=== PATIENT | female | born 1945 | race Two or more races ===

== ENCOUNTER 2016-09-23 14:12 | Inpatient (IN) | payer MEDICAID, OTHER ==
[~2016-09-23] VITALS: Ht 162.6 cm; Wt 74.6 kg
[2016-09-23 15:04] LABS: Basophils # (auto) 0 uL; Basophils % (auto) 0.4 % (0.0-2.0); Eosinophils # (auto) 0.1 uL; Eosinophils % (auto) 1.5 % (0.0-7.0); Hematocrit 43.4 % (36.0-46.0); Hemoglobin 14.4 g/dL (12.2-16.2); Lymphocytes # (auto) 2.7 uL; Lymphocytes % (auto) 38.4 % (10.0-50.0); Mean Corpuscular Hemoglobin 27.5 pg (28.0-32.0); Mean Corpuscular Hgb Conc. 33.3 g/dL (32.0-36.0); Mean Corpuscular Volume 82.6 fL (80.0-100.0); Mean Platelet Volume 9.7 fL (7.4-10.4); Monocytes # (auto) 0.7 uL; Monocytes % (auto) 10.1 % (0.0-12.0); Neutrophils # (auto) 3.5 uL; Neutrophils % (auto) 49.6 % (37.0-80.0); Platelet Count (auto) 385 10^3/uL (140-450); Red Cell Distribution Width 15.4 % (11.6-16.0)
[2016-09-23 15:19] LABS: BUN/Creatinine Ratio 24.1; Bilirubin, Total 0.4 mg/dL (0.2-1.0); Calcium 9.3 mg/dL (8.5-10.1); Potassium 4.3 mmol/L (3.5-5.1); Total Protein 7.2 g/dL (6.4-8.2)
[2016-09-23] MEDS ORDERED: SODIUM CHLORIDE 0.9% 1,000 ML IV ONE (16:45)
[2016-09-23 17:19] LABS: INR 1.09 (0.9-1.15); Partial Thromboplastin Time 24.5 sec (22.64-33.71); Prothrombin Time 11.2 sec (9.37-12.3)
[2016-09-23] MEDS ORDERED: IOHEXOL 300 MG/ML 100ML BOTTLE IJ ONE (17:43)
[2016-09-23] MEDS ORDERED: ONDANSETRON HCL 4 MG/2 ML VIAL IV PRN (18:45)
[2016-09-23] MEDS ORDERED: ACETAMINOPHEN 325 MG TAB PO PRN (18:45)
[2016-09-23] MEDS ORDERED: HYDROcodone-ACET 5/325MG TAB PO PRN (18:45)
[2016-09-23] MEDS ORDERED: TEMAZEPAM 15 MG CAP PO PRN (18:45)
[2016-09-23] MEDS ORDERED: MORPHINE SULF INJ 2 MG/ML SYRINGE 1ML IV PRN (18:45)
[2016-09-23] MEDS ORDERED: cefTRIAXone 1GM/50ML D5W 50 ML IV ONE (18:45)
[2016-09-23] MEDS ORDERED: SUMAtriptan SUCCINATE 25 MG TAB PO PRN (18:45)
[2016-09-23] MEDS ORDERED: ALPRAZolam 0.5 MG TAB PO PRN (18:45)
[2016-09-23] MEDS: SODIUM CHLORIDE 0.9% 1,000 ML IV SCH (19:13)
[2016-09-23] MEDS: MULTIPLE VITAMIN TAB PO SCH (19:14)
[2016-09-23 19:50] LABS: Hematocrit 37.3 % (36.0-46.0); Hemoglobin 12.1 g/dL (12.2-16.2)
[2016-09-23 19:55] VITALS: BP 126/50
[2016-09-23] MEDS ORDERED: DEXTROSE (50%) 50ML SYRG IV PRN (20:00)
[2016-09-23] MEDS: metroNIDAZOLE 500 MG TAB PO SCH (21:24)
[2016-09-23] MEDS: ATORVASTATIN 20 MG TAB PO SCH (21:25)
[2016-09-23] MEDS: MONTELUKAST SODIUM 10 MG TAB PO SCH (21:27)
[2016-09-23] MEDS: FLUTICASONE PROP NASAL SPR 0.05 % (50MCG) 16GM EACHNOSTRI SCH (22:00)
[2016-09-23] MEDS: ACCU-CHEK COMFORT CURVE STRIP VI SCH (22:00)
[2016-09-23 22:45] VITALS: BP 161/74
[2016-09-23 22:49] VITALS: BP 126/50
[2016-09-24] MEDS: InsuLIN REG 1unit/0.01ml Soln (100units/ml) SC SCH ×5 (00:37→21:26)
[2016-09-24] MEDS: FAMOTIDINE 20 MG TAB PO SCH ×3 (00:39→21:22)
[2016-09-24] MEDS ORDERED: INFLUENZA QUAD 2016-2017 0.5 ML SYRG IM ONE (03:45)
[2016-09-24] MEDS: SODIUM CHLORIDE 0.9% 1,000 ML IV SCH ×3 (03:52→21:21)
[2016-09-24] MEDS ORDERED: PNEUMOCOCCAL VACC POLYS 25 MCG/0.5 ML VIAL IM ONE (05:45)
[2016-09-24 05:57] VITALS: BP 126/51
[2016-09-24] MEDS: LEVOTHYROXINE SODIUM 100 MCG TAB PO SCH (06:05)
[2016-09-24] MEDS: metroNIDAZOLE 500 MG TAB PO SCH ×3 (06:08→21:21)
[2016-09-24 06:35] LABS: Basophils # (auto) 0 uL; Basophils % (auto) 0.2 % (0.0-2.0); Eosinophils # (auto) 0 uL; Eosinophils % (auto) 0.3 % (0.0-7.0); Hematocrit 27.7 % (36.0-46.0); Hemoglobin 9.2 g/dL (12.2-16.2); Lymphocytes # (auto) 3.2 uL; Mean Corpuscular Hemoglobin 27.4 pg (28.0-32.0); Mean Corpuscular Hgb Conc. 33.1 g/dL (32.0-36.0); Mean Corpuscular Volume 82.6 fL (80.0-100.0); Mean Platelet Volume 9.8 fL (7.4-10.4); Monocytes # (auto) 0.8 uL; Monocytes % (auto) 8.8 % (0.0-12.0); Neutrophils # (auto) 4.6 uL; Neutrophils % (auto) 53.7 % (37.0-80.0); Platelet Count (auto) 298 10^3/uL (140-450); White Blood Cell 8.5 10^3/uL (4.4-10.8)
[2016-09-24 06:50] LABS: Cellular Cast FEW /hpf (0); Urine Bilirubin Negative (Negative); Urine Color Yellow (Yellow); Urine Glucose Normal (Normal); Urine Hyaline Cast FEW /lpf (0 - 2); Urine Ketone Negative (Negative); Urine Nitrite Negative (Negative); Urine RBC <1 /hpf (0 - 4); Urine Urobilinogen Normal (Negative)
[2016-09-24 06:50] LABS: Albumin 2.9 g/dL (3.4-5.0); BUN/Creatinine Ratio 20.7; Calcium 8.2 mg/dL (8.5-10.1); Potassium 4.2 mmol/L (3.5-5.1)
[2016-09-24 06:51] LABS: Urine Blood 1+ /uL (Negative)
[2016-09-24 06:54] LABS: Bilirubin, Total 0.4 mg/dL (0.2-1.0); Total Protein 5.4 g/dL (6.4-8.2)
[2016-09-24] MEDS: ACCU-CHEK COMFORT CURVE STRIP VI SCH ×4 (06:55→21:26)
[2016-09-24] MEDS ORDERED: LEVO100T69 PO (08:16)
[2016-09-24] MEDS ORDERED: FENO145T20 PO (08:16)
[2016-09-24] MEDS ORDERED: ALPR0.5T7 PO (08:16)
[2016-09-24] MEDS ORDERED: FLUT50SP13 (08:16)
[2016-09-24] MEDS ORDERED: ATEN100T PO (08:16)
[2016-09-24] MEDS ORDERED: SERT-274 PO (08:16)
[2016-09-24] MEDS ORDERED: SUMA100T15 PO (08:16)
[2016-09-24 09:00] VITALS: BP 117/49
[2016-09-24] MEDS: cefTRIAXone 1GM/50ML D5W 50 ML IV SCH (09:33)
[2016-09-24] MEDS: CHOLECALCIFEROL (VITD3) 1,000 UNIT TAB PO SCH (09:36)
[2016-09-24] MEDS: SERTRALINE HCL 50 MG TAB PO SCH (09:36)
[2016-09-24] MEDS: ATENOLOL 50 MG TAB PO SCH (09:36)
[2016-09-24] MEDS: MULTIPLE VITAMIN TAB PO SCH (09:37)
[2016-09-24] MEDS: FLUTICASONE PROP NASAL SPR 0.05 % (50MCG) 16GM EACHNOSTRI SCH ×2 (09:38→21:22)
[2016-09-24] MEDS: FENOFIBRATE 145MG PO SCH (09:38)
[2016-09-24 13:00] VITALS: BP 133/56
[2016-09-24] MEDS ORDERED: GOLYTELY 4L KIT PO ONE (14:00)
[2016-09-24 17:00] VITALS: BP 142/56
[2016-09-24] MEDS: ATORVASTATIN 20 MG TAB PO SCH (21:21)
[2016-09-24] MEDS: MONTELUKAST SODIUM 10 MG TAB PO SCH (21:23)
[2016-09-24 22:00] VITALS: BP 113/59
[2016-09-25 05:00] VITALS: BP 126/65
[2016-09-25 05:25] LABS: Basophils # (auto) 0 uL; Basophils % (auto) 0.1 % (0.0-2.0); DEFINITIVE VIEW TRANSMISSION; Eosinophils # (auto) 0.1 uL; Hematocrit 25.8 % (36.0-46.0); Hemoglobin 8.4 g/dL (12.2-16.2); Lymphocytes # (auto) 2.8 uL; Lymphocytes % (auto) 45.1 % (10.0-50.0); Mean Corpuscular Hemoglobin 27.2 pg (28.0-32.0); Mean Corpuscular Hgb Conc. 32.7 g/dL (32.0-36.0); Mean Corpuscular Volume 83.2 fL (80.0-100.0); Mean Platelet Volume 9.3 fL (7.4-10.4); Monocytes # (auto) 0.6 uL; Monocytes % (auto) 10.2 % (0.0-12.0); Neutrophils # (auto) 2.7 uL; Neutrophils % (auto) 43.6 % (37.0-80.0); Platelet Count (auto) 241 10^3/uL (140-450); Red Cell Distribution Width 15.7 % (11.6-16.0); White Blood Cell 6.2 10^3/uL (4.4-10.8)
[2016-09-25] MEDS: ACCU-CHEK COMFORT CURVE STRIP VI SCH ×4 (06:16→22:00)
[2016-09-25] MEDS: InsuLIN REG 1unit/0.01ml Soln (100units/ml) SC SCH ×4 (06:16→22:00)
[2016-09-25] MEDS: SODIUM CHLORIDE 0.9% 1,000 ML IV SCH ×3 (06:17→20:45)
[2016-09-25] MEDS: metroNIDAZOLE 500 MG TAB PO SCH ×3 (06:20→21:53)
[2016-09-25] MEDS: LEVOTHYROXINE SODIUM 100 MCG TAB PO SCH (06:20)
[2016-09-25] MEDS ORDERED: SODIUM CHLORIDE LOCK 10 ML ONE (08:10)
[2016-09-25] MEDS ORDERED: diphenhdrAMINE HCL 50 MG/1 ML VL ONE (08:10)
[2016-09-25] MEDS: cefTRIAXone 1GM/50ML D5W 50 ML IV SCH (08:31)
[2016-09-25 09:00] VITALS: BP 125/62
[2016-09-25] MEDS: MULTIPLE VITAMIN TAB PO SCH (10:00)
[2016-09-25] MEDS: CHOLECALCIFEROL (VITD3) 1,000 UNIT TAB PO SCH (10:00)
[2016-09-25] MEDS: SERTRALINE HCL 50 MG TAB PO SCH (10:00)
[2016-09-25] MEDS: FLUTICASONE PROP NASAL SPR 0.05 % (50MCG) 16GM EACHNOSTRI SCH ×2 (10:00→22:00)
[2016-09-25] MEDS: FENOFIBRATE 145MG PO SCH (10:00)
[2016-09-25] MEDS: FAMOTIDINE 20 MG TAB PO SCH ×2 (10:00→21:53)
[2016-09-25] MEDS: ATENOLOL 50 MG TAB PO SCH (10:30)
[2016-09-25 12:48] VITALS: BP 144/68
[2016-09-25] MEDS: fentaNYL CITRATE 100 MCG/2 ML VL ONE ×2 (13:33→13:37)
[2016-09-25] MEDS: MIDAZOLAM HCL 5 MG/ML-1ML VIAL ONE ×2 (13:33→13:37)
[2016-09-25] MEDS: ATORVASTATIN 20 MG TAB PO SCH (21:53)
[2016-09-25] MEDS: MONTELUKAST SODIUM 10 MG TAB PO SCH (21:53)
[2016-09-25 22:00] VITALS: BP 119/60
[2016-09-26] MEDS: SODIUM CHLORIDE 0.9% 1,000 ML IV SCH ×2 (03:42→13:53)
[2016-09-26 05:00] VITALS: BP 139/65
[2016-09-26] MEDS: LEVOTHYROXINE SODIUM 100 MCG TAB PO SCH (06:00)
[2016-09-26] MEDS: metroNIDAZOLE 500 MG TAB PO SCH ×2 (06:00→13:52)
[2016-09-26] MEDS: InsuLIN REG 1unit/0.01ml Soln (100units/ml) SC SCH ×2 (06:35→11:30)
[2016-09-26] MEDS: ACCU-CHEK COMFORT CURVE STRIP VI SCH ×2 (06:35→11:30)
[2016-09-26 07:19] LABS: Basophils # (auto) 0 uL; Basophils % (auto) 0.4 % (0.0-2.0); Eosinophils # (auto) 0.1 uL; Eosinophils % (auto) 1.8 % (0.0-7.0); Hematocrit 26.9 % (36.0-46.0); Hemoglobin 8.9 g/dL (12.2-16.2); Lymphocytes # (auto) 2.5 uL; Lymphocytes % (auto) 40.5 % (10.0-50.0); Mean Corpuscular Hemoglobin 27.4 pg (28.0-32.0); Mean Corpuscular Hgb Conc. 33.1 g/dL (32.0-36.0); Mean Corpuscular Volume 82.9 fL (80.0-100.0); Mean Platelet Volume 9.7 fL (7.4-10.4); Monocytes # (auto) 0.7 uL; Monocytes % (auto) 11.1 % (0.0-12.0); Neutrophils # (auto) 2.8 uL; Neutrophils % (auto) 46.2 % (37.0-80.0); Platelet Count (auto) 252 10^3/uL (140-450); Red Cell Distribution Width 15.6 % (11.6-16.0); White Blood Cell 6.1 10^3/uL (4.4-10.8)
[2016-09-26 08:51] VITALS: BP 155/61
[2016-09-26] MEDS: cefTRIAXone 1GM/50ML D5W 50 ML IV SCH (09:00)
[2016-09-26] MEDS: MULTIPLE VITAMIN TAB PO SCH (09:39)
[2016-09-26] MEDS: CHOLECALCIFEROL (VITD3) 1,000 UNIT TAB PO SCH (09:40)
[2016-09-26] MEDS: FAMOTIDINE 20 MG TAB PO SCH (09:41)
[2016-09-26] MEDS: ATENOLOL 50 MG TAB PO SCH (09:41)
[2016-09-26] MEDS: SERTRALINE HCL 50 MG TAB PO SCH (09:41)
[2016-09-26] MEDS: FLUTICASONE PROP NASAL SPR 0.05 % (50MCG) 16GM EACHNOSTRI SCH (09:50)
[2016-09-26] MEDS: FENOFIBRATE 145MG PO SCH (09:51)
[2016-09-26 13:00] VITALS: BP 153/65
[2016-09-26 14:37] VITALS: BP 153/65
== END 2016-09-26 16:00 | disposition home or self-care (01) | DRG 254 ==
LOC: ER 14:26 → OVERFLOW 14:27 → WEST WING 20:13
PROVIDERS: ADMIT Internal Medicine; ATTEND Family Medicine
PROC: 0DJD8ZZ Inspection of Lower Intestinal Tract, Via Natural or Artificial Opening Endoscopic (ICD-10-PCS; principal; 2016-09-25 13:30)
DX: K92.1 Melena (principal); E11.21 Type 2 diabetes mellitus with diabetic nephropathy; D64.9 Anemia, unspecified; I12.9 Hypertensive chronic kidney disease with stage 1 through stage 4 chronic kidney disease, or unspecified chronic kidney disease; G43.909 Migraine, unspecified, not intractable, without status migrainosus; N18.2 Chronic kidney disease, stage 2 (mild); K21.9 Gastro-esophageal reflux disease without esophagitis; K57.30 Diverticulosis of large intestine without perforation or abscess without bleeding; E78.5 Hyperlipidemia, unspecified; E03.9 Hypothyroidism, unspecified; E11.22 Type 2 diabetes mellitus with diabetic chronic kidney disease; Z82.3 Family history of stroke; Z87.11 Personal history of peptic ulcer disease; Z90.49 Acquired absence of other specified parts of digestive tract; Z23 Encounter for immunization; Z98.1 Arthrodesis status; Z98.890 Other specified postprocedural states; Z80.9 Family history of malignant neoplasm, unspecified
CPT/HCPCS: 36415; 45378; 71010; 74177; 80053; 81001; 82270; 82962; 83036; 85014; 85018; 85025; 85049; 85610; 85730; 86850; 86900; 86901; 87045; 87086; 87493; 87899; 93005; 94761; 96361; 96365; J0696; J1815; J2250; J2405

== ENCOUNTER 2018-06-26 13:51 | Inpatient (IN) | payer OTHER, MEDICAID ==
[~2018-06-26] VITALS: Ht 160 cm; Wt 75.6 kg
[~2018-06-26 13:51] MED LIST: ALPR0.5T7 PO; ATEN100T PO; FENO1TAB42 PO; FLUT50SP13; LEVO100T69 PO; SERT-274 PO; SUMA100T15 PO
[2018-06-26] MEDS ORDERED: SODIUM CHLORIDE 0.9% 1,000 ML IV ONE ×2 (14:22)
[2018-06-26] MEDS ORDERED: PANTOPRAZOLE 40 MG/10 ML VIAL IV ONE ×2 (14:30→17:15)
[2018-06-26 15:05] LABS: Hemoglobin 14.2 g/dL (12.2-16.2); Monocytes # (auto) 1.3 uL
[2018-06-26 15:06] LABS: Basophils # (auto) 0 uL; Basophils % (auto) 0.3 % (0.0-2.0); Eosinophils # (auto) 0.3 uL; Eosinophils % (auto) 1.9 % (0.0-7.0); Hematocrit 42.5 % (36.0-46.0); Lymphocytes # (auto) 3.9 uL; Lymphocytes % (auto) 29.7 % (10.0-50.0); Mean Corpuscular Hemoglobin 27.8 pg (28.0-32.0); Mean Corpuscular Hgb Conc. 33.5 g/dL (32.0-36.0); Monocytes % (auto) 9.9 % (0.0-12.0); Neutrophils # (auto) 7.7 uL; Neutrophils % (auto) 58.2 % (37.0-80.0); Nucleated Red Blood Cells % 0.1 %; Platelet Count (auto) 472 10^3/uL (140-450); Red Blood Cells 5.12 10^6/uL (4.0-5.20); Red Cell Distribution Width 13.9 % (11.8-14.3); White Blood Cell 13.2 10^3/uL (4.4-10.8)
[2018-06-26 15:22] LABS: INR 0.99 (0.9-1.15); Partial Thromboplastin Time 27.8 sec (23.78-33.04); Prothrombin Time 10.6 sec (9.27-12.13)
[2018-06-26 15:28] LABS: Albumin 3.9 g/dL (3.4-5.0); Calcium 9.4 mg/dL (8.5-10.1); Potassium 3.5 mmol/L (3.5-5.1)
[2018-06-26 15:32] LABS: BUN/Creatinine Ratio 12.9; Bilirubin, Total 0.5 mg/dL (0.2-1.0); Total Protein 7.6 g/dL (6.4-8.2)
[2018-06-26] MEDS ORDERED: DEXTROSE (50%) 50ML SYRG IV PRN (17:00)
[2018-06-26] MEDS: ACCU-CHEK COMFORT CURVE STRIP VI SCH ×2 (17:00→22:04)
[2018-06-26] MEDS: InsuLIN REG 1unit/0.01ml Soln (100units/ml) SC SCH ×2 (17:00→22:00)
[2018-06-26] MEDS: SODIUM CHLORIDE 0.9% 1,000 ML IV SCH (17:09)
[2018-06-26] MEDS ORDERED: DOCUSATE SOD 100 MG CAP PO PRN (17:15)
[2018-06-26] MEDS ORDERED: TEMAZEPAM 15 MG CAP PO PRN (17:15)
[2018-06-26] MEDS ORDERED: ACETAMINOPHEN 325 MG TAB PO PRN (17:15)
[2018-06-26] MEDS ORDERED: SERTRALINE HCL 50 MG TAB PO ONE (17:15)
[2018-06-26] MEDS ORDERED: MORPHINE SULFATE 4 MG/ML SYR/VIAL IV PRN ×2 (17:15)
[2018-06-26] MEDS ORDERED: POTASSIUM CHLORIDE 8 MEQ TAB PO ONE (17:15)
[2018-06-26] MEDS ORDERED: NITROGLYCERIN 0.4 MG SL TAB SL PRN (17:15)
[2018-06-26] MEDS ORDERED: FUROSEMIDE 20 MG TAB PO ONE (17:15)
[2018-06-26] MEDS ORDERED: LORATADINE 10 MG TAB PO PRN (17:15)
[2018-06-26] MEDS ORDERED: ATENOLOL 50 MG TAB PO ONE (17:15)
[2018-06-26] MEDS: CIPROFLOXACIN HYDROCHLORIDE 250 MG TAB PO SCH ×2 (18:19→18:54)
[2018-06-26 18:48] LABS: Hematocrit 35.5 % (36.0-46.0); Hemoglobin 11.9 g/dL (12.2-16.2)
[2018-06-26 18:50] LABS: Urine Bacteria FEW /hpf (None Seen); Urine Blood 3+ /uL (Negative); Urine Hyaline Cast FEW /lpf (0 - 2); Urine Specific Gravity 1.008 (1.001-1.035); Urine WBC 2 /hpf (0 - 5)
[2018-06-26] MEDS ORDERED: ATEN25TA PO (20:25)
[2018-06-26] MEDS ORDERED: SERT-275 PO (20:28)
[2018-06-26] MEDS ORDERED: CETI10TA93 PO (20:33)
[2018-06-26] MEDS ORDERED: OME20T PO (20:33)
[2018-06-26] MEDS ORDERED: ATOR10TA52 PO (20:33)
[2018-06-26] MEDS ORDERED: TICA90TA PO (20:33)
[2018-06-26] MEDS ORDERED: ASPI1TAB19 PO (20:33)
[2018-06-26] MEDS ORDERED: FUR20T PO (20:33)
[2018-06-26] MEDS ORDERED: POTA8TAB2 PO (20:33)
[2018-06-26] MEDS ORDERED: CIPR-217 PO (20:35)
[2018-06-26 22:00] VITALS: BP 123/53
[2018-06-26] MEDS: FLUTICASONE PROP NASAL SPR 0.05 % (50MCG) 16GM EACHNOSTRI SCH (22:00)
[2018-06-26] MEDS ORDERED: FAMOTIDINE 20 MG TAB PO SCH (22:00)
[2018-06-26] MEDS: ATENOLOL 50 MG TAB PO SCH (22:00)
[2018-06-26] MEDS: ATORVASTATIN 20 MG TAB PO SCH (22:22)
[2018-06-26 23:03] LABS: Hematocrit 33.7 % (36.0-46.0); Hemoglobin 11.5 g/dL (12.2-16.2)
[2018-06-27] MEDS: SODIUM CHLORIDE 0.9% 1,000 ML IV SCH (05:15)
[2018-06-27 05:23] VITALS: BP 127/58
[2018-06-27] MEDS: LEVOTHYROXINE SODIUM 100 MCG TAB PO SCH (05:31)
[2018-06-27] MEDS: CIPROFLOXACIN HYDROCHLORIDE 250 MG TAB PO SCH ×2 (05:31→17:55)
[2018-06-27] MEDS: ACCU-CHEK COMFORT CURVE STRIP VI SCH ×4 (06:15→23:08)
[2018-06-27] MEDS: InsuLIN REG 1unit/0.01ml Soln (100units/ml) SC SCH ×4 (06:16→22:00)
[2018-06-27 06:21] LABS: Potassium 3.5 mmol/L (3.5-5.1)
[2018-06-27 06:33] LABS: Albumin 3.1 g/dL (3.4-5.0); BUN/Creatinine Ratio 12.2; Bilirubin, Total 0.4 mg/dL (0.2-1.0); Calcium 8.9 mg/dL (8.5-10.1)
[2018-06-27 07:16] LABS: Basophils # (auto) 0 uL; Basophils % (auto) 0.4 % (0.0-2.0); Eosinophils # (auto) 0.2 uL; Hemoglobin 11.4 g/dL (12.2-16.2); Lymphocytes # (auto) 3.1 uL; Lymphocytes % (auto) 37.5 % (10.0-50.0); Mean Corpuscular Hemoglobin 28.4 pg (28.0-32.0); Mean Corpuscular Hgb Conc. 33.6 g/dL (32.0-36.0); Mean Corpuscular Volume 84.4 fL (80.0-100.0); Monocytes # (auto) 0.8 uL; Monocytes % (auto) 9.8 % (0.0-12.0); Neutrophils # (auto) 4.2 uL; Neutrophils % (auto) 50.3 % (37.0-80.0); Platelet Count (auto) 329 10^3/uL (140-450); Red Blood Cells 4.03 10^6/uL (4.0-5.20); Red Cell Distribution Width 14.1 % (11.8-14.3); White Blood Cell 8.4 10^3/uL (4.4-10.8)
[2018-06-27 08:00] VITALS: BP 129/54
[2018-06-27 09:00] VITALS: BP 129/54
[2018-06-27] MEDS: ATENOLOL 50 MG TAB PO SCH ×2 (10:00→22:00)
[2018-06-27] MEDS: SERTRALINE HCL 50 MG TAB PO SCH (10:00)
[2018-06-27] MEDS: FLUTICASONE PROP NASAL SPR 0.05 % (50MCG) 16GM EACHNOSTRI SCH ×2 (10:00→22:00)
[2018-06-27] MEDS ORDERED: PATIENTS OWN MEDICATION PO SCH ×3 (10:00)
[2018-06-27] MEDS: MULTIPLE VITAMIN TAB PO SCH (11:39)
[2018-06-27] MEDS: FUROSEMIDE 20 MG TAB PO SCH (11:40)
[2018-06-27] MEDS: POTASSIUM CHLORIDE 8 MEQ TAB PO SCH (11:41)
[2018-06-27] MEDS: PANTOPRAZOLE 40 MG/10 ML VIAL IV SCH (11:41)
[2018-06-27 13:00] VITALS: BP 131/49
[2018-06-27 17:16] VITALS: BP 125/53
[2018-06-27 22:00] VITALS: BP 147/56
[2018-06-27] MEDS: ATORVASTATIN 20 MG TAB PO SCH (23:02)
[2018-06-27] MEDS: HYDROcodone-ACET 5/325MG TAB PO PRN (23:04)
[2018-06-28] VITALS (7 sets, daily range): BP systolic 110–143; BP diastolic 48–78
[2018-06-28 06:45] LABS: Basophils # (auto) 0 uL; Basophils % (auto) 0.5 % (0.0-2.0); Eosinophils # (auto) 0.2 uL; Eosinophils % (auto) 2.1 % (0.0-7.0); Hematocrit 31.9 % (36.0-46.0); Hemoglobin 10.7 g/dL (12.2-16.2); Lymphocytes # (auto) 3.7 uL; Mean Corpuscular Hemoglobin 27.9 pg (28.0-32.0); Mean Corpuscular Hgb Conc. 33.6 g/dL (32.0-36.0); Mean Corpuscular Volume 82.8 fL (80.0-100.0); Monocytes # (auto) 0.7 uL; Neutrophils # (auto) 3.5 uL; Neutrophils % (auto) 43.4 % (37.0-80.0); Platelet Count (auto) 319 10^3/uL (140-450); Red Blood Cells 3.85 10^6/uL (4.0-5.20); Red Cell Distribution Width 13.9 % (11.8-14.3); White Blood Cell 8.1 10^3/uL (4.4-10.8)
[2018-06-28] MEDS: LEVOTHYROXINE SODIUM 100 MCG TAB PO SCH (06:50)
[2018-06-28] MEDS: SODIUM CHLORIDE 0.9% 1,000 ML IV SCH (06:50)
[2018-06-28] MEDS: CIPROFLOXACIN HYDROCHLORIDE 250 MG TAB PO SCH ×2 (06:50→18:15)
[2018-06-28] MEDS: InsuLIN REG 1unit/0.01ml Soln (100units/ml) SC SCH ×4 (06:52→22:00)
[2018-06-28] MEDS: ACCU-CHEK COMFORT CURVE STRIP VI SCH ×4 (06:53→23:56)
[2018-06-28] MEDS ORDERED: GOLYTELY 4L KIT PO ONE (09:45)
[2018-06-28] MEDS: FLUTICASONE PROP NASAL SPR 0.05 % (50MCG) 16GM EACHNOSTRI SCH ×2 (10:00→22:00)
[2018-06-28] MEDS: ATENOLOL 50 MG TAB PO SCH ×2 (10:00→22:00)
[2018-06-28] MEDS: MULTIPLE VITAMIN TAB PO SCH (10:00)
[2018-06-28] MEDS: FENOFIBRATE 145MG TAB PO SCH (10:00)
[2018-06-28] MEDS: PANTOPRAZOLE 40 MG/10 ML VIAL IV SCH (11:10)
[2018-06-28] MEDS: POTASSIUM CHLORIDE 8 MEQ TAB PO SCH (11:11)
[2018-06-28] MEDS: FUROSEMIDE 20 MG TAB PO SCH (11:12)
[2018-06-28] MEDS: SERTRALINE HCL 50 MG TAB PO SCH (11:15)
[2018-06-28] MEDS: ALBUTEROL SULF 2.5 MG/0.5ML(0.5%) NEB SOLN NEB PRN (11:22)
[2018-06-28] MEDS: ONDANSETRON HCL 4 MG/2 ML VIAL IV PRN ×2 (16:24→18:15)
[2018-06-28] MEDS: HYDROcodone-ACET 5/325MG TAB PO PRN ×2 (16:25→22:52)
[2018-06-28] MEDS: ATORVASTATIN 20 MG TAB PO SCH (22:46)
[2018-06-29] MEDS: SODIUM CHLORIDE 0.9% 1,000 ML IV SCH ×2 (00:37→13:47)
[2018-06-29 04:55] VITALS: BP 116/46
[2018-06-29] MEDS ORDERED: GOLYTELY 4L KIT PO ONE (06:00)
[2018-06-29] MEDS: InsuLIN REG 1unit/0.01ml Soln (100units/ml) SC SCH ×4 (06:06→22:00)
[2018-06-29] MEDS: LEVOTHYROXINE SODIUM 100 MCG TAB PO SCH (06:06)
[2018-06-29] MEDS: CIPROFLOXACIN HYDROCHLORIDE 250 MG TAB PO SCH ×2 (06:06→16:44)
[2018-06-29] MEDS: ACCU-CHEK COMFORT CURVE STRIP VI SCH ×4 (06:07→22:15)
[2018-06-29] MEDS: ALBUTEROL SULF 2.5 MG/0.5ML(0.5%) NEB SOLN NEB PRN (06:51)
[2018-06-29 09:00] VITALS: BP 139/58
[2018-06-29] MEDS: PANTOPRAZOLE 40 MG/10 ML VIAL IV SCH (09:17)
[2018-06-29] MEDS: FENOFIBRATE 145MG TAB PO SCH (10:00)
[2018-06-29] MEDS: FLUTICASONE PROP NASAL SPR 0.05 % (50MCG) 16GM EACHNOSTRI SCH ×2 (10:04→22:00)
[2018-06-29] MEDS ORDERED: NALOXONE HCL 0.4 MG/ML VIAL ONE (10:15)
[2018-06-29] MEDS ORDERED: SODIUM CHLORIDE LOCK 10 ML ONE (10:16)
[2018-06-29] MEDS ORDERED: FLUMAZENIL 0.1 MG/ML INJ 10ML MDV IV ONE (10:16)
[2018-06-29] MEDS: MIDAZOLAM HCL 5 MG/ML-1ML VIAL ONE ×3 (11:30→11:38)
[2018-06-29] MEDS: fentaNYL CITRATE 100 MCG/2 ML VL ONE ×3 (11:30→11:38)
[2018-06-29 12:50] VITALS: BP 124/50
[2018-06-29 13:00] VITALS: BP 130/64
[2018-06-29] MEDS: SERTRALINE HCL 50 MG TAB PO SCH (16:38)
[2018-06-29] MEDS: FUROSEMIDE 20 MG TAB PO SCH (16:38)
[2018-06-29] MEDS: POTASSIUM CHLORIDE 8 MEQ TAB PO SCH (16:38)
[2018-06-29] MEDS: MULTIPLE VITAMIN TAB PO SCH (16:38)
[2018-06-29] MEDS: ATENOLOL 50 MG TAB PO SCH ×2 (16:45→22:06)
[2018-06-29 17:00] VITALS: BP 147/62
[2018-06-29] MEDS ORDERED: HYDROcodone-ACET 5/325MG TAB PO PRN (17:00)
[2018-06-29 22:00] VITALS: BP 112/42
[2018-06-29] MEDS: ATORVASTATIN 20 MG TAB PO SCH (22:05)
[2018-06-30 05:05] VITALS: BP 127/64
[2018-06-30] MEDS: CIPROFLOXACIN HYDROCHLORIDE 250 MG TAB PO SCH (06:45)
[2018-06-30] MEDS: LEVOTHYROXINE SODIUM 100 MCG TAB PO SCH (06:45)
[2018-06-30] MEDS: InsuLIN REG 1unit/0.01ml Soln (100units/ml) SC SCH ×2 (06:46→11:30)
[2018-06-30] MEDS: ACCU-CHEK COMFORT CURVE STRIP VI SCH ×2 (06:49→12:02)
[2018-06-30] MEDS: SODIUM CHLORIDE 0.9% 1,000 ML IV SCH (06:54)
[2018-06-30 06:57] LABS: Hematocrit 34.1 % (36.0-46.0); Hemoglobin 11.4 g/dL (12.2-16.2)
[2018-06-30 07:20] LABS: BUN/Creatinine Ratio 7.8; Calcium 8.9 mg/dL (8.5-10.1); Potassium 4.2 mmol/L (3.5-5.1)
[2018-06-30 09:00] VITALS: BP 137/71
[2018-06-30] MEDS: FENOFIBRATE 145MG TAB PO SCH (10:00)
[2018-06-30] MEDS: FLUTICASONE PROP NASAL SPR 0.05 % (50MCG) 16GM EACHNOSTRI SCH ×2 (10:00→14:33)
[2018-06-30] MEDS: PANTOPRAZOLE 40 MG/10 ML VIAL IV SCH (10:20)
[2018-06-30] MEDS: FUROSEMIDE 20 MG TAB PO SCH (10:21)
[2018-06-30] MEDS: MULTIPLE VITAMIN TAB PO SCH (10:21)
[2018-06-30] MEDS: SERTRALINE HCL 50 MG TAB PO SCH (10:22)
[2018-06-30] MEDS: POTASSIUM CHLORIDE 8 MEQ TAB PO SCH (10:22)
[2018-06-30] MEDS: ATENOLOL 50 MG TAB PO SCH (10:25)
[2018-06-30 13:00] VITALS: BP_SYST 122; BP_SYST 128; BP_SYST 181; BP_DIAS 67; BP_DIAS 75; BP_DIAS 95
[2018-06-30 15:17] VITALS: BP 128/67
== END 2018-06-30 15:45 | disposition home or self-care (01) | DRG 378 ==
LOC: ER 13:52 → TELE 13:53 → TELE-EAST 19:37
PROVIDERS: ADMIT Internal Medicine; ATTEND Internal Medicine Pulmonary Disease
PROC: 0DBM8ZX Excision of Descending Colon, Via Natural or Artificial Opening Endoscopic, Diagnostic (ICD-10-PCS; 2018-06-29)
PROC: 0DBK8ZX Excision of Ascending Colon, Via Natural or Artificial Opening Endoscopic, Diagnostic (ICD-10-PCS; principal; 2018-06-29 11:15)
DX: K57.31 Diverticulosis of large intestine without perforation or abscess with bleeding (principal); D62 Acute posthemorrhagic anemia; E44.1 Mild protein-calorie malnutrition; N18.3 Chronic kidney disease, stage 3 (moderate); R79.89 Other specified abnormal findings of blood chemistry; E78.5 Hyperlipidemia, unspecified; E11.65 Type 2 diabetes mellitus with hyperglycemia; K76.0 Fatty (change of) liver, not elsewhere classified; E11.21 Type 2 diabetes mellitus with diabetic nephropathy; I70.0 Atherosclerosis of aorta; D12.2 Benign neoplasm of ascending colon; D12.4 Benign neoplasm of descending colon; D25.9 Leiomyoma of uterus, unspecified; E03.9 Hypothyroidism, unspecified; E11.22 Type 2 diabetes mellitus with diabetic chronic kidney disease; I12.9 Hypertensive chronic kidney disease with stage 1 through stage 4 chronic kidney disease, or unspecified chronic kidney disease; I25.10 Atherosclerotic heart disease of native coronary artery without angina pectoris; K21.9 Gastro-esophageal reflux disease without esophagitis; K62.1 Rectal polyp; Z82.3 Family history of stroke; Z87.11 Personal history of peptic ulcer disease; Z90.49 Acquired absence of other specified parts of digestive tract; Z95.5 Presence of coronary angioplasty implant and graft; Z79.899 Other long term (current) drug therapy; Z68.29 Body mass index [BMI] 29.0-29.9, adult
CPT/HCPCS: 36415; 71045; 74176; 80048; 80053; 81001; 82962; 83036; 84443; 85014; 85018; 85025; 85610; 85730; 86850; 86900; 86901; 87086; 94640; 96360; C9113; G0378; J2250; J2405